=== PATIENT | female | born 1955 | race Caucasian/White ===

== ENCOUNTER → 2016-11-26 | Outpatient (CLI) | payer OTHER ==
--- NOTE | 2016-11-26 17:32 | US ---
Venous Duplex Doppler Study of Left Upper Extremity History: Localized swelling in the anterior elbow after deep tissue massage 3 weeks ago, M 25.153 Technique: High frequency transducer was used for imaging and Doppler study of the veins of the left upper extremity. Pulsed Doppler and color Doppler were utilized, along with various maneuvers to a ssess flow in the veins. Findings: The basilic vein, brachial vein and axillary vein are normally compressible and had normal waveforms within them. Normal color doppler flow is seen within the subclavian vein which is noted t o have normal respiratory variation. The internal jugular vein is normally compressible and has yasmeen l Doppler flow within it. No venous thrombosis is identified. Please note that the left cephalic vein was not visualized. Impression: No evidence of vein thrombosis in the left arm. No abnormality identified in the left an tecubital fossa. If a mass persists, then consider noncontrast MRI or CT with IV contrast. Results discussed with Dr. Kothari at 5:30 PM.
== END ==
LOC: FIMAGING 16:18
PROVIDERS: ATTEND Family Medicine
DX: M25.522 Pain in left elbow (principal)

== ENCOUNTER → 2017-08-26 | Outpatient (CLI) | payer OTHER | LOC: FIMAGING 14:50 | PROVIDERS: ATTEND Obstetrics & Gynecology | DX: Z12.31 Encounter for screening mammogram for malignant neoplasm of breast (principal) | CPT/HCPCS: G0202 ==

== ENCOUNTER → 2018-08-28 | Outpatient (CLI) | payer OTHER | LOC: FIMAGING 14:40 | PROVIDERS: ATTEND Obstetrics & Gynecology | DX: Z12.31 Encounter for screening mammogram for malignant neoplasm of breast (principal); Z80.3 Family history of malignant neoplasm of breast ==